=== PATIENT | female | born 1990 | race African-American/Black ===

== ENCOUNTER 2019-03-15 17:39 | Emergency (ER) | payer OTHER ==
[~2019-03-15] VITALS: Ht 165.1 cm; Wt 62.6 kg
--- NOTE | 2019-03-15 17:39 | NUR ---
Patient BIBA BLS, transferred to bed 12. RN evaluating patient at bedside.
[2019-03-15 17:55] VITALS: BP 117/61
[2019-03-15] MEDS ORDERED: NACL 0.9% 1,000 ML IV ONE (17:55)
--- NOTE | 2019-03-15 18:16 | NUR ---
lab at bedside
[2019-03-15 18:22] LABS: BASOPHILS % (AUTO) 0.5 % (0.0-2.0); EOSINOPHILS # (AUTO) 0.1 K/uL (0-0.4); EOSINOPHILS % (AUTO) 2.6 % (0.0-4.0); HEMATOCRIT 34.3 % (36-48); HEMOGLOBIN 11.3 g/dL (12.0-16.0); LYMPHOCYTES # (AUTO) 1.8 K/uL (2.5-16.5); LYMPHOCYTES % (AUTO) 33.5 % (20.5-51.1); MEAN CORPUSCULAR HEMOGLOBIN 31 pg (27-31); MEAN CORPUSCULAR HGB CONC 33 g/dL (33-37); MEAN CORPUSCULAR VOLUME 93.4 fL (80-94); MONOCYTES # (AUTO) 0.4 K/uL (0.8-1.0); NEUTROPHILS % (AUTO) 55.4 % (42.2-75.2); PLATELET COUNT (AUTO) 173 K/uL (140-450); RED BLOOD CELL COUNT(AUTO) 3.67 MIL/uL (4.20-5.40); RED CELL DISTRIBUTION WIDTH 11.8 % (11.6-13.7); WHITE BLOOD COUNT (AUTO) 5.4 K/uL (4.8-10.8)
--- NOTE | 2019-03-15 18:22 | NUR ---
pt ambulated to bathroom, no assistance, even steady gait.
[2019-03-15 18:34] LABS: ALBUMIN 3.9 g/dL (3.4-5.0); ANION GAP 14.9 (8-16); CARBON DIOXIDE 24.4 mmol/L (21-32); CREATININE 0.9 mg/dL (0.6-1.3); POTASSIUM 3.3 mmol/L (3.5-5.1); TOTAL BILIRUBIN 0.4 mg/dL (0.0-1.0)
[2019-03-15 18:40] LABS: APPEARANCE,URINE CLEAR (CLEAR); BILIRUBIN,URINE NEGATIVE (NEGATIVE); BLOOD, URINE NEGATIVE (NEGATIVE); COLOR,URINE YELLOW (YELLOW); LEUKOCYTE ESTERASE ,URINE NEGATIVE (NEGATIVE); NITRITE, URINE NEGATIVE (NEGATIVE); PH,URINE 5.5 (5.0-9.0); UGLUCOSE NEGATIVE (NEGATIVE)
[2019-03-15 18:44] LABS: BARBITURATE, URINE NEG. ng/ml (NEG <=200); BENZODIAZEPINE, URINE NEG. ng/mL (NEG <=200); CANNABINOID, URINE POS. ng/mL (NEG <=50); COCAINE, URINE NEG. ng/mL (NEG <=300); OPIATE, URINE NEG. ng/mL (NEG <=2000); PHENCYCLIDINE SCREEN,URINE NEG. ng/mL (NEG <=25)
--- NOTE | 2019-03-15 19:10 | NUR ---
RECEIVED REPORT FROM RONALDO PENN. ASSUMED CARE AT THIS TIME.
[2019-03-15] MEDS ORDERED: POTASSIUM CHLORIDE 10 MEQ TABER PO ONE (20:00)
[2019-03-15 20:23] VITALS: BP 96/63
--- NOTE | 2019-03-15 20:23 | NUR ---
Patient discharged with v/s stable. Written and verbal after care instructions given and explained. Patient verbalized understanding. Ambulatory with steady gait. All questions addressed prior to discharge. Advised to follow up with PMD.
== END 2019-03-15 20:23 | disposition home or self-care (01) ==
LOC: MED 17:39
DX: T67.5XXA Heat exhaustion, unspecified, initial encounter (principal); E87.6 Hypokalemia; F17.210 Nicotine dependence, cigarettes, uncomplicated; J45.909 Unspecified asthma, uncomplicated; X30.XXXA Exposure to excessive natural heat, initial encounter; Y93.89 Activity, other specified; Y92.89 Other specified places as the place of occurrence of the external cause; Y99.8 Other external cause status
CPT/HCPCS: 36415; 80053; 80305; 81003; 85025; 96360; 99283; J7030

== ENCOUNTER 2019-04-20 14:11 | Emergency (ER) | payer OTHER ==
[~2019-04-20] VITALS: Ht 167.6 cm; Wt 66.2 kg
[2019-04-20 14:15] VITALS: BP 107/69
--- NOTE | 2019-04-20 14:19 | NUR ---
PT TO WAIT IN ER LOBBY. VSS. NO OBVIOUS DEFORMITY. +CMS
--- NOTE | 2019-04-20 14:57 | NUR ---
PT AMBULATED TO ER BED 01
--- NOTE | 2019-04-20 15:00 | NUR ---
PT PRESENTS TO ED WITH C/O RIGHT HAND PAIN X 3 DAYS, WORSENING TODAY. DENIES TRAUMA. NO OBVIOUS DEFORMITY. +CMS. PAIN 04/03 [facility]-DENIES RX-IBUPROFEN YESTERDAY
[2019-04-20] MEDS ORDERED: IBUPROFEN 800 MG TAB PO ONE (16:15)
[2019-04-20 16:31] VITALS: BP 107/69
== END 2019-04-20 16:31 | disposition home or self-care (01) ==
LOC: MED 14:11
DX: M25.531 Pain in right wrist (principal); J45.909 Unspecified asthma, uncomplicated
CPT/HCPCS: 73130; 99283

== ENCOUNTER 2020-10-25 12:16 | Emergency (ER) | payer MEDICAID, OTHER ==
[~2020-10-25] VITALS: Ht 162.6 cm; Wt 70.3 kg
[2020-10-25 12:27] VITALS: BP 110/69
--- NOTE | 2020-10-25 12:27 | NUR ---
Patient ambulated to bed 2. RN evaluating the patient at bedside.
[2020-10-25] MEDS ORDERED: LIDOCAINE/EPI 2% 1:100000 20 ML VIAL INJ ONE (13:07)
[2020-10-25] MEDS ORDERED: fentaNYL citrate 0.05 MG/ML VIAL ONE (15:14)
[2020-10-25] MEDS: fentaNYL citrate 0.05 MG/ML VIAL IVP ONE (15:29)
[2020-10-25] MEDS ORDERED: HYDROcodone/APAP 5/325 MG 1 TAB TAB ONE (15:54)
[2020-10-25 15:59] VITALS: BP 134/82
--- NOTE | 2020-10-25 16:01 | NUR ---
Patient discharged with v/s stable, IN NAD. Written and verbal after care instructions given and explained. Patient alert, oriented and verbalized understanding of instructions. Ambulatory with steady gait. All questions addressed prior to discharge. ID band AND IV ACCESS removed. Patient advised to follow up with PMD. Rx of BACTRIM, NORCO given. Patient educated on indication of medication including possible reaction and side effects. Opportunity to ask questions provided and answered. PT IN AGREEMENT WITH PLAN OF CARE.
[2020-10-25] MEDS: HYDROcodone/APAP 5/325 MG 1 TAB TAB PO ONE (16:02)
== END 2020-10-25 15:59 | disposition home or self-care (01) ==
LOC: MED 12:16
DX: L03.116 Cellulitis of left lower limb (principal); J45.909 Unspecified asthma, uncomplicated
CPT/HCPCS: 96374; 99284; J3010; J2001

== ENCOUNTER 2020-11-02 15:15 | Emergency (ER) | payer MEDICAID ==
[~2020-11-02] VITALS: Ht 162.6 cm; Wt 70.3 kg
[2020-11-02 15:40] VITALS: BP 95/68
[2020-11-02] MEDS ORDERED: LIDOCAINE MPF 1% 10 MG/ML VIAL INJ ONE (16:00)
[2020-11-02] MEDS ORDERED: KETOROLAC 60 MG/2 ML VIAL IM ONE (16:15)
[2020-11-02 16:44] VITALS: BP 95/68
== END 2020-11-02 16:45 | disposition home or self-care (01) ==
LOC: MED 15:15
DX: L02.416 Cutaneous abscess of left lower limb (principal); J45.909 Unspecified asthma, uncomplicated; Z98.890 Other specified postprocedural states
CPT/HCPCS: 10060; 96372; 99283; J1885; J2001

== ENCOUNTER 2020-11-05 13:43 | Emergency (ER) | payer MEDICAID, OTHER ==
[~2020-11-05] VITALS: Ht 162.6 cm; Wt 70.3 kg
[2020-11-05 13:50] VITALS: BP 101/65
--- NOTE | 2020-11-05 14:00 | NUR ---
WOUND CHECK POST ABCESS DRAIN ON MONDAY ON LEFT UPPER THIGH. PT DENIES COMPLICATIONS.
--- NOTE | 2020-11-05 14:17 | NUR ---
CHAPERONED DR. BROOKLYN RAINES VISUALIZING WOUND ON LEFT UPPER THIGH
[2020-11-05 14:26] VITALS: BP 101/65
== END 2020-11-05 14:26 | disposition home or self-care (01) ==
LOC: MED 13:43
DX: L02.416 Cutaneous abscess of left lower limb (principal); J45.909 Unspecified asthma, uncomplicated; Z48.00 Encounter for change or removal of nonsurgical wound dressing
CPT/HCPCS: 99281